=== PATIENT | male | born 1960 | race Caucasian/White ===

== ENCOUNTER 2017-06-03 14:53 | Emergency (ER) | payer OTHER | END 2017-06-03 17:58 | disposition home or self-care (01) | LOC: FTE 14:53 | DX: M25.552 Pain in left hip (principal); E03.9 Hypothyroidism, unspecified; I10 Essential (primary) hypertension; Z85.038 Personal history of other malignant neoplasm of large intestine; Z87.891 Personal history of nicotine dependence | CPT/HCPCS: 99282; Z7502 ==

== ENCOUNTER → 2017-06-19 | Outpatient (CLI) | payer OTHER | END | disposition home or self-care (01) | LOC: HKI 13:44 | DX: M87.852 Other osteonecrosis, left femur (principal) | CPT/HCPCS: Z7500 ==